=== PATIENT | female | born 1990 | race Caucasian/White ===

== ENCOUNTER 2017-03-07 00:44 | Emergency (ER) | payer BC, MEDICAID ==
[~2017-03-07] VITALS: Ht 160 cm; Wt 100.0 kg
[2017-03-07 00:48] VITALS: BP 119/71; TEMP 98
[2017-03-07 01:36] LABS: PH 5 (5-8); URINE APPEARANCE Hazy; URINE BACTERIA Rare /hpf; URINE BILIRUBIN Negative (NEGATIVE); URINE BLOOD Negative (NEGATIVE); URINE COLOR Yellow; URINE GLUCOSE Negative (NEGATIVE); URINE KETONE Negative (NEGATIVE); URINE RBC 0-2 /hpf; URINE UROBILINOGEN Negative (NEGATIVE)
[2017-03-07] MEDS ORDERED: PREDNISONE20 MG PO (03:07)
[2017-03-07] MEDS ORDERED: ZITHROMAX 250M250 MG PO (03:07)
[2017-03-07 03:39] VITALS: PULSE 104
[2017-03-09] MEDS ORDERED: MACROBID 1100 MG/CAP PO (21:05)
== END 2017-03-07 03:16 | disposition home or self-care (01) ==
LOC: COL.ER 00:44
PROVIDERS: Emergency Medicine
DX: J20.9 Acute bronchitis, unspecified (principal); R10.12 Left upper quadrant pain; F17.210 Nicotine dependence, cigarettes, uncomplicated
CPT/HCPCS: J7512